=== PATIENT | male | born 1955 | race Native Hawaiian/Other Pacific Islander ===

== ENCOUNTER 2016-07-25 09:32 | Outpatient (CLI) | payer BC, OTHER | END 2016-07-25 09:36 | disposition home or self-care (01) | LOC: AMB 09:32 | DX: M54.89 Other dorsalgia (principal); V43.52XA Car driver injured in collision with other type car in traffic accident, initial encounter; Y93.89 Activity, other specified; Y92.488 Other paved roadways as the place of occurrence of the external cause | CPT/HCPCS: A0425; A0429 ==

== ENCOUNTER 2016-07-25 09:42 | Observation (INO) | payer OTHER, BC ==
[~2016-07-25] VITALS: Ht 165.1 cm; Wt 63.7 kg
[2016-07-25 10:03] VITALS: BP 175/113; TEMP 98.7
[2016-07-25 11:47] LABS: PLATELET COUNT 211 K/uL (142-355)
[2016-07-25 12:08] LABS: POTASSIUM 4.3 mmol/L (3.6-5.2); SODIUM 138 mmol/L (136-145)
[2016-07-25 12:23] LABS: PARTIAL THROMBOPLASTIN TIME 23.3 SECONDS (24.5-33.6)
[2016-07-25 13:29] VITALS: BP 147/86
[2016-07-25 15:50] VITALS: BP 129/72; TEMP 98
[2016-07-25 17:02] VITALS: BP 160/79; TEMP 97.4; Ht 165.1 cm; Wt 63.7 kg
[2016-07-25 20:00] VITALS: BP 142/74; TEMP 97.6
--- NOTE | 2016-07-25 22:55 | NUR ---
CT AND EKG RESULTS CALLED TO DR. HURTADO. NO ORDERS RECEIVED.
[2016-07-26 00:02] VITALS: BP 118/56; TEMP 97.4
[2016-07-26 04:00] VITALS: BP 129/69; TEMP 97.6
[2016-07-26 04:23] LABS: PLATELET COUNT 172 K/uL (142-355)
[2016-07-26 05:25] LABS: POTASSIUM 3.6 mmol/L (3.6-5.2); SODIUM 136 mmol/L (136-145)
[2016-07-26 08:00] VITALS: BP 154/69; TEMP 97.5
[2016-07-26 12:00] VITALS: BP 151/56; TEMP 98
--- NOTE | 2016-07-26 15:30 | NUR ---
IV DC'D WITH CANNULA INTACT AND SITE CARE PROVIDED.
--- NOTE | 2016-07-26 16:00 | NUR ---
DC INSTRUCTIONS GIVEN TO PT. INSTRUCTED PT TO FOLLOW UP WITH DR SIMPSON TOMORROW 07/28/16 AT 1400. PT VERBALIZED UNDERSTANDING. PT LEFT AMBULATORY REQUESTED. NAD NOTED
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
== END 2016-07-26 16:12 | disposition home or self-care (01) ==
LOC: ED 09:42 → MED/SURG 13:15
PROVIDERS: Emergency Medicine; ADMIT Specialist
DX: S16.1XXA Strain of muscle, fascia and tendon at neck level, initial encounter (principal); V43.52XA Car driver injured in collision with other type car in traffic accident, initial encounter; Y93.89 Activity, other specified; Y92.488 Other paved roadways as the place of occurrence of the external cause; S29.012A Strain of muscle and tendon of back wall of thorax, initial encounter; R79.89 Other specified abnormal findings of blood chemistry
CPT/HCPCS: 36591; 80048; 82550; 82553; 83735; 84484; 85027; 85379; 85610; 85730; 93005; 96372; 99220; 99283; G0378; J1885; J2175; J2550; J3475; Q9963

== ENCOUNTER 2016-07-27 11:58 | Outpatient (CLI) | payer BC, OTHER | END 2016-07-27 13:15 | disposition home or self-care (01) | LOC: RESP 11:58 | DX: R07.89 Other chest pain (principal) | CPT/HCPCS: 93306 ==

== ENCOUNTER 2016-08-05 09:51 | Outpatient (CLI) | payer BC, OTHER | END 2016-08-05 20:01 | disposition home or self-care (01) | LOC: RAD 09:51 | DX: M54.2 Cervicalgia (principal) ==